=== PATIENT | female | born 1990 | race Caucasian/White ===

== ENCOUNTER 2022-12-29 11:35 | Inpatient (IN) | payer MEDICAID, OTHER ==
[~2022-12-29] VITALS: Ht 162.6 cm; Wt 122.5 kg
[2022-12-29] MEDS ORDERED: NALOXONE HCL 0.4 MG/ML 1ML VIAL IM PRN (12:45)
[2022-12-29] MEDS ORDERED: CARBOPROST TROMETHAMINE 250 MCG/ML AMPUL IM PRN (12:45)
[2022-12-29] MEDS ORDERED: METHYLERGONOVINE MALEATE 0.2 MG/ML IM PRN (12:45)
[2022-12-29] MEDS ORDERED: OXYTOCIN 30 UNITS/500ML NS PMX 500 ML IV SCH (12:45)
[2022-12-29] MEDS ORDERED: LIDOCAINE HCL 1% 20ML VIAL (Pyxis) INJ INFIL NR (12:45)
[2022-12-29] MEDS ORDERED: MISOPROSTOL 100MCG TABLET RC NR (12:45)
[2022-12-29] MEDS: LACTATED RINGERS 1,000 ML IV SCH ×3 (13:00→22:06)
[2022-12-29] MEDS: MISOPROSTOL 100MCG TABLET VG PRN ×2 (16:07→20:23)
[2022-12-29 16:48] LABS: BASOPHILS % 0.2 % (0.0-2.0); EOSINOPHILS % 0.2 % (0.0-5.0); HEMATOCRIT. 39.3 % (36.0-48.0); HEMOGLOBIN. 13.2 g/dL (12.0-16.0); MEAN CORPUSCULAR HEMOGLOBIN 30.5 pg (28.0-32.0); MEAN CORPUSCULAR HGB CONC 33.5 g/dL (31.0-37.0); MEAN PLATELET VOLUME 9.2 fl (7.4-10.4); MONOCYTES % 5.3 % (2.0-8.0); NEUTROPHILS % 74.3 % (40.0-76.0); PLATELET 195 x1000/uL (130-400); RED BLOOD CELL COUNT 4.32 mill/uL (4.2-5.4); WHITE BLOOD COUNT 9.2 x1000/uL (4.5-11.0)
[2022-12-29 16:59] LABS: INR 0.9; PARTIAL THROMBOPLASTIN TIME 26.9 sec (23.4-31.0); PROTHROMBIN TIME 10.1 sec (9.6-11.0)
[2022-12-29 17:09] LABS: CALCIUM 8.2 mg/dL (8.5-10.1); CHLORIDE 110 mEq/L (98-107); INDEX HEMOLYSI 1 (1-3); INDEX ICTERIC 1 (1-4); INDEX LIPEMIC 1 (1-3); POTASSIUM 3.7 mEq/L (3.5-5.1); SODIUM 136 mEq/L (136-145)
[2022-12-29 17:15] LABS: ALANINE AMINOTRANSFERASE 17 IU/L (13-61); ALBUMIN 2.7 g/dL (3.4-5.0); ASPARTATE AMINOTRANSFERASE 13 IU/L (15-37); BILIRUBIN TOTAL 0.4 mg/dL (0.1-1.0); CARBON DIOXIDE 21 mEq/L (21-32); CREATININE 0.5 mg/dL (0.6-1.3); GLUCOSE 65 mg/dL (70-105); PROTEIN TOTAL 6.9 g/dL (6.0-8.3); UREA NITROGEN BLOOD 6 mg/dL (7-21)
[2022-12-29 17:24] LABS: *AMPHETAMINES SCREEN URINE NEGATIVE (NEGATIVE); *BARBITURATES SCREEN URINE NEGATIVE (NEGATIVE); *BENZODIAZEPINES SCREEN URINE NEGATIVE (NEGATIVE); *COCAINE SCREEN URINE NEGATIVE (NEGATIVE); CANNABINOID URINE SCREEN NEGATIVE (NEGATIVE); ECSTASY MDMA SCREEN URINE NEGATIVE (NEGATIVE); OPIATES URINE SCREEN NEGATIVE (NEGATIVE); PHENCYCLIDINE URINE SCREEN NEGATIVE (NEGATIVE)
[2022-12-29 17:35] LABS: HEPATITIS B SURFACE ANTIGEN NEGATIVE; RUBELLA IGG 154.6 IU/mL (4.99-10)
[2022-12-29 19:37] LABS: RAPID HIV SCREEN NEGATIVE (NEGATIVE)
[2022-12-30] MEDS: MISOPROSTOL 100MCG TABLET VG PRN ×4 (00:30→15:24)
[2022-12-30] MEDS ORDERED: MEPERIDINE HCL/PF 50MG/ML CPJ IM NR (09:45)
[2022-12-30] MEDS: LACTATED RINGERS 1,000 ML IV SCH (15:13)
[2022-12-30] MEDS ORDERED: ROPIVACAINE HCL/PF EPIDURAL 200 ML EPI SCH (22:45)
[2022-12-30] MEDS ORDERED: ROPIVACAINE HCL/PF EPIDURAL 200 ML EPI ONE (22:50)
[2022-12-31] MEDS: LACTATED RINGERS 1,000 ML IV SCH (06:51)
[2022-12-31] MEDS ORDERED: FENTANYL CITRATE/PF 50MCG/ML 2ML VIAL ONE (10:25)
[2022-12-31] MEDS ORDERED: BUPIVACAINE HCL/PF 0.25% (2.5MG/ML) 10ML ONE (10:25)
[2022-12-31] MEDS ORDERED: MORPHINE SULFATE/PF 1MG/ML 10ML AMP ONE (13:03)
[2022-12-31] MEDS ORDERED: HYDROMORPHONE HCL/PF 2MG/ML CPJ ONE (13:03)
[2022-12-31] MEDS ORDERED: PHENYLEPHRINE HCL 10 MG/ML 1ML (IV VIAL) IV ONE (13:20)
[2022-12-31] MEDS ORDERED: MIDAZOLAM HCL 2 MG/2 ML VIAL ONE (13:28)
[2022-12-31] MEDS ORDERED: ONDANSETRON HCL 4MG/2ML INJ IV PRN (13:30)
[2022-12-31] MEDS ORDERED: HYDROMORPHONE HCL/PF 2MG/ML CPJ IV PRN (13:30)
[2022-12-31] MEDS ORDERED: DIPHENHYDRAMINE 50MG/ML VIAL IV PRN (13:30)
[2022-12-31] MEDS ORDERED: ACETAMINOPHEN 500MG TABLET PO NR (13:30)
[2022-12-31] MEDS ORDERED: HYDROMORPHONE HCL/PF 2MG/ML CPJ IM PRN (14:00)
[2022-12-31] MEDS ORDERED: IBUPROFEN 400MG TABLET PO PRN (14:00)
[2022-12-31 16:30] VITALS: BP 110/60; PULSE 83; RESP 18; TEMP 98.4; O2SAT 98
[2022-12-31 20:00] VITALS: BP 116/73; PULSE 82; RESP 18; TEMP 97.8; O2SAT 97
[2022-12-31] MEDS ORDERED: DIPHENHYDRAMINE 25MG CAPSULE PO PRN (21:00)
[2022-12-31] MEDS: KETOROLAC 30MG/ML VIAL IV PRN (22:07)
[2023-01-01 00:06] VITALS: BP 106/54; PULSE 78; RESP 18; TEMP 98.2
[2023-01-01] MEDS: KETOROLAC 30MG/ML VIAL IV PRN (03:29)
[2023-01-01 04:00] VITALS: BP 101/58; PULSE 79; RESP 18; TEMP 98.4
[2023-01-01 08:20] VITALS: O2SAT 98
[2023-01-01 08:30] VITALS: BP 109/60; PULSE 92; RESP 18; TEMP 98.3
[2023-01-01] MEDS: PRENATAL VIT/FE FUMARATE/FA TABLET PO SCH (11:59)
[2023-01-01] MEDS: IBUPROFEN 800MG TABLET PO PRN ×2 (11:59→17:56)
[2023-01-01] MEDS: FERROUS SULFATE 325MG TABLET PO SCH ×3 (11:59→17:56)
[2023-01-01 12:23] LABS: BASOPHILS % 0.1 % (0.0-2.0); EOSINOPHILS % 0.2 % (0.0-5.0); HEMATOCRIT. 27.7 % (36.0-48.0); HEMOGLOBIN. 9.3 g/dL (12.0-16.0); LYMPHOCYTES % 16.7 % (20.0-50.0); MEAN CORPUSCULAR HEMOGLOBIN 30.7 pg (28.0-32.0); MEAN CORPUSCULAR HGB CONC 33.7 g/dL (31.0-37.0); MEAN CORPUSCULAR VOLUME 91.1 fL (81.0-99.0); MEAN PLATELET VOLUME 8.8 fl (7.4-10.4); MONOCYTES % 7.2 % (2.0-8.0); NEUTROPHILS % 75.8 % (40.0-76.0); PLATELET 149 x1000/uL (130-400); RED BLOOD CELL COUNT 3.04 mill/uL (4.2-5.4); RED CELL DISTRIBUTION WIDTH 14.8 % (11.6-14.6); WHITE BLOOD COUNT 11.9 x1000/uL (4.5-11.0)
[2023-01-01 15:30] VITALS: BP 111/69; PULSE 89; RESP 18; TEMP 98.2
[2023-01-01] MEDS ORDERED: NALOXONE HCL 0.4MG/ML VIAL IV PRN (19:15)
[2023-01-01 20:00] VITALS: BP 117/66; PULSE 92; RESP 18; TEMP 98.5; O2SAT 98
[2023-01-01] MEDS: MAGNESIUM/ALUMINUM HYDROXIDE/SIMETHICONE 30ML UDC PO PRN (20:39)
[2023-01-01] MEDS: SIMETHICONE 80MG TABLET CHEW PO SCH (20:39)
[2023-01-02] MEDS: IBUPROFEN 800MG TABLET PO PRN ×4 (00:47→21:53)
[2023-01-02 03:40] VITALS: BP 121/78; PULSE 81; RESP 18; TEMP 98.3
[2023-01-02] MEDS: MAGNESIUM/ALUMINUM HYDROXIDE/SIMETHICONE 30ML UDC PO PRN ×3 (08:34→21:44)
[2023-01-02] MEDS: SIMETHICONE 80MG TABLET CHEW PO SCH ×3 (08:34→21:44)
[2023-01-02] MEDS: PRENATAL VIT/FE FUMARATE/FA TABLET PO SCH (08:35)
[2023-01-02 08:45] VITALS: BP 97/62; PULSE 79; RESP 18; TEMP 98.2
[2023-01-02 09:15] VITALS: O2SAT 97
[2023-01-02] MEDS: FERROUS SULFATE 325MG TABLET PO SCH ×2 (14:17→21:44)
[2023-01-02 16:20] VITALS: BP 121/70; PULSE 88; RESP 18; TEMP 98.2
[2023-01-02 20:44] VITALS: BP 136/89; PULSE 94; RESP 18; TEMP 98.2; O2SAT 100
[2023-01-03 00:28] VITALS: BP 112/73; PULSE 86; RESP 18; TEMP 98.1
[2023-01-03] MEDS ORDERED: IBUP-2030 PO (00:56)
[2023-01-03] MEDS ORDERED: MULT-1116 MT (00:56)
[2023-01-03] MEDS ORDERED: FERR-63 PO (00:56)
[2023-01-03] MEDS: IBUPROFEN 800MG TABLET PO PRN ×3 (03:32→13:08)
[2023-01-03 05:40] VITALS: BP 108/83; PULSE 83; RESP 18; TEMP 98
[2023-01-03 08:00] VITALS: BP 117/78; PULSE 85; RESP 18; TEMP 98; O2SAT 98
[2023-01-03] MEDS: PRENATAL VIT/FE FUMARATE/FA TABLET PO SCH (13:07)
[2023-01-03 13:08] VITALS: BP 117/78; PULSE 85; RESP 18
== END 2023-01-03 13:18 | disposition home or self-care (01) | DRG 540 ==
LOC: OBSVTOIN 11:35 → 8 EST LDRP 11:35 → 8EST 12-31 16:30
PROVIDERS: ADMIT Obstetrics & Gynecology; ATTEND Obstetrics & Gynecology
PROC: 10D00Z1 Extraction of Products of Conception, Low, Open Approach (ICD-10-PCS; principal; 2022-12-31)
PROC: 3E0DXGC Introduction of Other Therapeutic Substance into Mouth and Pharynx, External Approach (ICD-10-PCS; 2022-12-31)
DX: O48.0 Post-term pregnancy (principal); O24.420 Gestational diabetes mellitus in childbirth, diet controlled; E66.01 Morbid (severe) obesity due to excess calories; O99.214 Obesity complicating childbirth; O62.2 Other uterine inertia; O90.81 Anemia of the puerperium; Z82.49 Family history of ischemic heart disease and other diseases of the circulatory system; Z3A.40 40 weeks gestation of pregnancy; Z37.0 Single live birth; Z83.3 Family history of diabetes mellitus
CPT/HCPCS: 36415; 76805; 76818; 80053; 80305; 82962; 85025; 86592; 86703; 86762; 86850; 86900; 87340; 88307; 99281; J1170; J1885; J2175; J2250; J2274; J2370; J2795; J3010; J3490; J7120; A4315; J2590